=== PATIENT | male | born 1960 | race Caucasian/White ===

== ENCOUNTER → 2019-04-30 | Day surgery (SDC) | payer OTHER ==
[~2019-04-30] MED LIST: Dextrose 5%-Lactated Ringers 1,000 ML IV SCH; Metoprolol Succinate 50 MG Tab.ER PO ONE; Midazolam 1 MG/ML 2 ML SDV ONE; Propofol 200 MG/20 ML SDV ONE; fentaNYL 100 MCG/2 ML SDV ONE
[2019-04-30 09:45] VITALS: BP 123/77; PULSE 76
--- NOTE | 2019-05-07 09:36 | OR ---
DATE OF PROCEDURE: 04/30/2019 SURGEON: Kyler Bill MD PREOPERATIVE DIAGNOSES: 1. Dysphagia with history of previous esophageal strictures. 2. History of colon polyps. POSTOPERATIVE DIAGNOSES: 1. Upper endoscopy showing: a. Mild narrowing of esophagogastric junction with minimal inflammation of esophagogastric junction. b. Mild antral gastritis and duodenitis. 2. History of colon polyps with colonoscopy showing: a. Single polyp involving splenic flexure. b. Uncomplicated left colonic diverticulosis. OPERATIVE PROCEDURE: 1. Esophagogastroduodenoscopy with: a. Biopsies of antrum for CLOtest (69433). b. Dilation of esophagus (73097). 2. Flexible colonoscopy with polypectomy by snare technique (55251). ANESTHESIA: IV sedation. INDICATION FOR PROCEDURE: The patient presents with some recurrent dysphagia referable to the distal esophagus. He has known history of some reflux esophagitis and presently is on omeprazole 20 mg a day. With this, he has fairly good control of reflux symptoms, but has developed some dysphagia. Several years ago, he has had a dilation of the esophagus with adequate relief of those symptoms for a period of years. The plan in this regard is proceed with upper GI endoscopy with biopsies and/or dilation as indicated. The patient also has a history of colon polyps and is undergoing followup screening colonoscopy with biopsies and/or polypectomy as indicated. Potential risks of the procedures including bleeding and perforation were discussed, and the patient wishes to proceed. DETAILS OF PROCEDURE: The patient was taken to the operating room and placed in a left lateral decubitus position, after which the upper GI endoscope was passed orally through the length of the esophagus, into the stomach with retroflexion view of the fundus, and thereafter through the pyloric channel and into the junction of the third and fourth portions of the duodenum. Findings included normal hypopharynx, larynx, upper esophageal sphincter, and esophageal body. At the EG junction, a small hiatal hernia was present. There was some mild narrowing in the esophagogastric junction, but otherwise minimal gross inflammation of the EG junction. There is no upward extension of the esophagogastric mucosal line above the mucosal folds, i.e. no evidence of Ayala's esophagus. Within the antrum, there was some patchy redness and this continued into the duodenal bulb, but without ulcers or erosions, and beyond the duodenal bulb, the findings were normal. At this point, biopsies were obtained from the antrum and sent for CLOtest for H. pylori. Following this, a guidewire was passed into the stomach and the gastroscope withdrawn. A 51- [place] Savary dilator was then passed over the guidewire and held in position for 1 minute, after which the guidewire and dilator were removed. Attention was then taken to the colonoscopy. Initial digital rectal exam was unremarkable. The colonoscope was then passed into the rectum with retroflexion revealing uncomplicated hemorrhoidal columns. The scope was eventually passed to the level of the cecum. The prep was fairly good with a small amount of liquid stool obscuring a small percentage of the mucosal surfaces. The patient was noted to have some uncomplicated left colonic diverticulosis. Otherwise, he had a single polyp measuring around 5 mm in the splenic flexure. This was removed by means of the cautery snare technique. Good hemostasis was evident, and the polyp was retrieved and sent for histologic evaluation. The scope was then withdrawn and the procedure then concluded. The recommendation, assuming the current polyp was benign, would be to repeat colonoscopy in 3 years, and repeat upper endoscopy can be done on a p.r.n. basis based on the dysphagia. Otherwise, we will have him continue the omeprazole 20 mg a day. Kyler Bill MD /[id number]
== END ==
LOC: JP.SDS 05:51
PROVIDERS: ATTEND Surgery
DX: D12.3 Benign neoplasm of transverse colon (principal); K57.30 Diverticulosis of large intestine without perforation or abscess without bleeding; K29.70 Gastritis, unspecified, without bleeding; K29.80 Duodenitis without bleeding; K21.0 Gastro-esophageal reflux disease with esophagitis; K44.9 Diaphragmatic hernia without obstruction or gangrene; K91.89 Other postprocedural complications and disorders of digestive system; F17.210 Nicotine dependence, cigarettes, uncomplicated; Z86.010 Personal history of colon polyps; Z91.048 Other nonmedicinal substance allergy status
CPT/HCPCS: 43239; 43248; 45385; 87081; 88305; A9270; J2250; J2704; J3010; J7121

== ENCOUNTER 2020-01-28 05:15 | Day surgery (SDC) | payer OTHER ==
[2020-01-28] MEDS ORDERED: Bupivacaine 0.5% 30 ML SDV ONE (06:35)
[2020-01-28] MEDS ORDERED: Povidone-Iodine 10% Soln 118.25 ML Bottle ONE (06:35)
[2020-01-28] MEDS: Nozin Nasal Sanitizer NASBOTH SCH ×3 (06:55→20:00)
[2020-01-28] MEDS ORDERED: Lactated Ringers 1,000 ML IV SCH (07:00)
[2020-01-28] MEDS ORDERED: fentaNYL 100 MCG/2 ML SDV ONE (07:22)
[2020-01-28] MEDS ORDERED: Midazolam 1 MG/ML 2 ML SDV ONE ×2 (07:22→08:15)
[2020-01-28] MEDS ORDERED: Propofol 200 MG/20 ML SDV ONE ×2 (07:22→08:58)
[2020-01-28] MEDS ORDERED: ceFAZolin 2 GM in Premix Bag 1 BAG IV ONE (07:30)
[2020-01-28] MEDS ORDERED: Lactated Ringers 1,000 ML ONE (09:18)
[2020-01-28] MEDS ORDERED: Acetaminophen 325 MG Tab PO PRN (09:28)
[2020-01-28] MEDS ORDERED: traMADol 50 MG Tab PO PRN (09:28)
[2020-01-28] MEDS ORDERED: Ondansetron 4 MG/2 ML SDV IVPUSH PRN (09:28)
[2020-01-28] MEDS ORDERED: Nitroglycerin 0.4 MG Tab.SL SL PRN (09:45)
[2020-01-28] MEDS: Acetaminophen/oxyCODONE 325-5 MG Tab PO PRN ×3 (12:11→19:55)
[2020-01-28] MEDS: Ketorolac 30 MG/ML SDV IVPUSH PRN ×2 (12:12→19:56)
[2020-01-28] MEDS: HYDROmorphone 0.5 MG/0.5 ML Syringe IVPUSH PRN ×3 (12:13→16:08)
--- NOTE | 2020-01-28 14:05 | CR ---
Knee 1V or 2V Rt CLINICAL HISTORY: Postop FINDINGS: Patient is status post medial hemiarthroplasty. Components appear well seated. There is some intra-articular and 16 is air Impression: Status post Medial hemiarthroplasty
[2020-01-28] MEDS: Sodium Chloride 0.9% 1,000 ML IV SCH (15:33)
[2020-01-28] MEDS: ceFAZolin 1 GM in Premix Bag 1 BAG IV SCH (15:34)
[2020-01-28] MEDS: Pantoprazole 40 MG Tab.CR PO SCH (16:11)
[2020-01-28] MEDS ORDERED: HYDROmorphone 1 MG/ML Syringe IVPUSH PRN (17:07)
[2020-01-28] MEDS: metFORMIN 500 MG Tab PO SCH (17:21)
[2020-01-28] MEDS: Metoprolol Succinate 50 MG Tab.ER PO SCH (20:03)
[2020-01-28] MEDS ORDERED: Melatonin 3 MG Tab PO PRN (20:27)
[2020-01-28] MEDS ORDERED: amLODIPine 5 MG Tab PO SCH (21:00)
[2020-01-28] MEDS ORDERED: Nozin Nasal Sanitizer NASBOTH SCH (21:00)
[2020-01-28] MEDS ORDERED: Terazosin 5 MG Cap PO SCH (21:00)
[2020-01-28] MEDS: Docusate Sodium 100 MG Cap PO SCH (21:45)
[2020-01-29] MEDS: ceFAZolin 1 GM in Premix Bag 1 BAG IV SCH (00:13)
[2020-01-29] MEDS: Sodium Chloride 0.9% 1,000 ML IV SCH (00:13)
[2020-01-29] MEDS: Acetaminophen/oxyCODONE 325-5 MG Tab PO PRN ×3 (02:44→12:12)
[2020-01-29] MEDS: Ketorolac 30 MG/ML SDV IVPUSH PRN (04:40)
[2020-01-29] MEDS: metFORMIN 500 MG Tab PO SCH (07:16)
[2020-01-29] MEDS: Pantoprazole 40 MG Tab.CR PO SCH (07:16)
[2020-01-29] MEDS ORDERED: Aspirin 81 MG Tab.EC PO SCH (09:00)
[2020-01-29] MEDS ORDERED: Cetirizine 10 MG Tab PO SCH (09:00)
[2020-01-29] MEDS ORDERED: Fluticasone Propionate Nasal Spray 16 GM Bottle NASBOTH SCH (09:00)
[2020-01-29] MEDS ORDERED: Rosuvastatin 10 MG Tab PO SCH (09:00)
[2020-01-29] MEDS: Metoprolol Succinate 50 MG Tab.ER PO SCH (09:30)
[2020-01-29] MEDS: Nozin Nasal Sanitizer NASBOTH SCH (09:31)
[2020-01-29] MEDS: Docusate Sodium 100 MG Cap PO SCH (09:31)
[2020-01-29 11:26] VITALS: BP 120/68; PULSE 57
--- NOTE | 2020-01-29 12:19 | PCM.DCSUM1 ---
Discharge Summary - Hospital Course HPI Initial Comments: 59 year old male admitted for right unicompartmental arthroplasty Diagnosis: Stroke: No Modified Joe Scale: No Symptoms at All Modified Alden Scale Score: 0 - Discharge Data Discharge Date: 01/29/20 Discharge Disposition: Home, Self-Care 01 Condition: Good - Referral to Home Health Date of Face to Face Encounter: 01/29/20 Primary Care Physician: Whitney Handy MD - Discharge Diagnosis/Problem(s) (1) Status post right partial knee replacement SNOMED Code(s): 586565414, [id number], [id number], [id number] ICD Code: Z96.651 - PRESENCE OF RIGHT ARTIFICIAL KNEE JOINT Status: Acute Current Visit: Yes - Patient Summary/Data Operative Procedure(s) Performed: Right knee medial unicompartmental arthroplasty Complications: none Consults: Consultations 01/28/20 09:28 Consult to Case Management/Lever Miller [CONS] Routine Comment: Physician Instructions: Service(s) to be Consulted: Case Management Reason for Consult: Plan for Discharge OT Evaluation and Treatment [CONS] Routine Please Evaluate and Treat. OT Reason for Consult: ADL's This query below is only for informational purposes and is not editable. PT Evaluation and Treatment [CONS] Routine Please Evaluate and Treat. PT Reason for Consult: Post op Ortho Surgery This query below is only for informational purposes and is not editable. PT Evaluation and Treatment [CONS] Routine Please Evaluate and Treat. PT Reason for Consult: Post op Ortho Surgery Knee Pending Discharge: Yes, 1- 2 days Special Instructions: Schedule first outpatient PT appointment in 3-5 day post discharge. This query below is only for informational purposes and is not editable. Hospital Course: Admitted for right knee arthroplasty and tolerated surgery without complication. Some difficulty with pain control initially. Better with po meds POD #1 and has been up in siegel and ambulating over 200 feet. Dressing changed and incision looks good, moderate swelling. Home today follow up in 2 weeks. Left knee has been stiff and bothering him more lately and he requested a cortisone injection prior to discharge. - Patient Instructions Diet: Usual Diet as Tolerated Activity: Apply Ice, As Tolerated, Full Weight Bearing Driving: Do Not Drive Showering/Bathing: May Shower Wound/Incision Care: Keep Operative Site/Wound Site Clean and Dry Notify Provider of: Fever, Increased Pain, Swelling and Redness, Drainage, Nausea and/or Vomiting - Discharge Plan *PRESCRIPTION DRUG MONITORING PROGRAM REVIEWED*: No *COPY OF PRESCRIPTION DRUG MONITORING REPORT IN PATIENT JIM: No Prescriptions/Med Rec: oxyCODONE HCl/Acetaminophen [Percocet 5-325 mg Tablet] 1 - 2 each PO Q6HR PRN #48 tablet PRN Reason: Pain Home Medications: Home Meds Aspirin 81 mg PO DAILY 12/27/13 [History] Cetirizine HCl [Allergy Relief] 10 mg PO DAILY 12/27/13 [History] Flunisolide [Nasalide Nasal [place]] 1 spray ISIDRA BID 12/27/13 [History] Metoprolol Succinate 50 mg PO BID 12/27/13 [History] [place]-3/DHA/Epa/Fish Oil [Fish Oil] 1,000 mg PO BID 12/27/13 [History] Omeprazole 20 mg PO BID 12/27/13 [History] Vitamin E 1,000 unit PO DAILY 12/27/13 [History] oxyCODONE 20 mg PO Q6H 12/27/13 [History] Cyanocobalamin (Vitamin B-12) [Vitamin B-12] 1,000 mcg SL DAILY 04/27/19 [History] Rosuvastatin [Crestor] 40 mg PO DAILY 04/27/19 [History] Terazosin [Hytrin] 10 mg PO BEDTIME 04/27/19 [History] metFORMIN [Glucophage] 1,000 mg PO BIDMEALS 04/27/19 [History] Nitroglycerin 0.4 mg SL ASDIRECTED 04/30/19 [History] amLODIPine [Norvasc] 2.5 mg PO BEDTIME 04/30/19 [History] oxyCODONE HCl/Acetaminophen [Percocet 5-325 mg Tablet] 1 - 2 each PO Q6HR PRN #48 tablet 01/29/20 [Rx] Oxygen Therapy Mode: Room Air Referrals: Jayy Vega PT [Physical Therapist] - 01/31/20 8:30 am (Please arrive 15 minutes early to register for your Physical Therapy appointment. Your appointment is at [facility], [address] [place] [address] ) Tony Thompson MD [Physician] - 02/12/20 10:30 am (Pleease arrive 15 minutes early to register for your appointment.) - Discharge Summary/Plan Comment DC Time >30 min.: No - General Info Functional Status: Reports: Pain Controlled, Tolerating Diet, Ambulating, Urinating - Review of Systems General: Reports: No Symptoms HEENT: Reports: No Symptoms Pulmonary: Reports: No Symptoms Cardiovascular: Reports: No Symptoms Gastrointestinal: Reports: No Symptoms Genitourinary: Reports: No Symptoms Musculoskeletal: Reports: Joint Pain, Joint Swelling Skin: Reports: No Symptoms Neurological: Reports: No Symptoms Psychiatric: Reports: No Symptoms - Patient Data Vitals - Most Recent: Last Vital Signs Temp 36.9 C 01/29/20 11:26 Pulse 57 L 01/29/20 11:26 Resp 18 01/29/20 11:26 BP 120/68 01/29/20 11:26 Pulse Ox 94 L 01/29/20 11:26 Weight - Most Recent: 79.379 kg I&O - Last 24 hours: Intake & Output 01/28/20 01/29/20 01/29/20 22:59 06:59 14:59 Intake Total 1475 801 Output Total 250 Balance 1225 801 Med Orders - Current: Current Medications Acetaminophen (Tylenol) 650 mg PO Q4H PRN PRN Reason: Pain/Fever Amlodipine Besylate (Norvasc) 2.5 mg PO BEDTIME [facility] Last Admin: 01/28/20 20:03 Dose: 2.5 mg Documented by: Aspirin (Halfprin) 81 mg PO DAILY [facility] Last Admin: 01/29/20 09:31 Dose: 81 mg Documented by: Bandage/Support Products ( Nasal Irrigation Installation Specialist) 1 applic NASBOTH BID [facility] Stop: 02/03/20 21:01 Last Admin: 01/29/20 09:31 Dose: 1 applic Documented by: Cetirizine HCl (Zyrtec) 10 mg PO DAILY [facility] Last Admin: 01/29/20 09:30 Dose: 10 mg Documented by: Docusate Sodium (Colace) 100 mg PO BID [facility] Last Admin: 01/29/20 09:31 Dose: 100 mg Documented by: Fluticasone Propionate (Flonase) 0 gm NASBOTH DAILY [facility] Last Admin: 01/29/20 09:31 Dose: 1 applic Documented by: Hydromorphone HCl (Dilaudid) 1 mg IVPUSH Q1H PRN PRN Reason: Breakthrough Pain Last Admin: 01/28/20 21:50 Dose: 1 mg Documented by: Sodium Chloride (Normal Saline) 1,000 mls @ 125 mls/hr IV ASDIRECTED [facility] Last Admin: 01/29/20 00:13 Dose: 125 mls/hr Documented by: Ketorolac Tromethamine (Toradol) 30 mg IVPUSH Q8H PRN PRN Reason: Pain Last Admin: 01/29/20 04:40 Dose: 30 mg Documented by: Melatonin (Melatonin) 9 mg PO BEDTIME PRN PRN Reason: Insomnia Last Admin: 01/28/20 21:51 Dose: 9 mg Documented by: Metformin HCl (Glucophage) 1,000 mg PO BIDMEALS [facility] Last Admin: 01/29/20 07:16 Dose: 1,000 mg Documented by: Metoprolol Succinate (Toprol Xl) 50 mg PO BID [facility] Last Admin: 01/29/20 09:30 Dose: 50 mg Documented by: Nitroglycerin (Nitrostat) 0.4 mg SL ASDIRECTED PRN PRN Reason: CHEST PAIN Ondansetron HCl (Zofran) 4 mg IVPUSH Q6H PRN PRN Reason: Nausea/Vomiting Oxycodone/Acetaminophen (Percocet 325-5 Mg) 2 tab PO Q4H PRN PRN Reason: Pain (moderate 4-6) Last Admin: 01/29/20 12:12 Dose: 2 tab Documented by: Pantoprazole Sodium (Protonix) 40 mg PO BIDAC [facility] Last Admin: 01/29/20 07:16 Dose: 40 mg Documented by: Rosuvastatin Calcium (Crestor) 40 mg PO DAILY [facility] Last Admin: 01/29/20 09:30 Dose: 40 mg Documented by: Terazosin HCl (Hytrin) 10 mg PO BEDTIME [facility] Last Admin: 01/28/20 20:02 Dose: 10 mg Documented by: Tramadol HCl (Ultram) 50 mg PO Q4H PRN PRN Reason: Pain (mild 1-3) Discontinued Medications Bupivacaine HCl (Marcaine 0.5%) Confirm Administered Dose 30 ml .ROUTE .STK-MED ONE Stop: 01/28/20 06:36 Fentanyl (Sublimaze) Confirm Administered Dose 100 mcg .ROUTE .STK-MED ONE Stop: 01/28/20 07:23 Hydromorphone HCl (Dilaudid) 0.5 mg IVPUSH Q1H PRN PRN Reason: Breakthrough Pain Last Admin: 01/28/20 16:08 Dose: 0.5 mg Documented by: Lactated Ringer's (Ringers, Lactated) 1,000 mls @ 75 mls/hr IV ASDIRECTED [facility] Last Admin: 01/28/20 06:51 Dose: 75 mls/hr Documented by: Cefazolin Sodium 2 gm/ (Dextrose/Water) 100 mls @ 200 mls/hr IV ONETIME ONE Stop: 01/28/20 07:59 Last Admin: 01/28/20 07:58 Dose: 200 mls/hr Documented by: Lactated Ringer's (Ringers, Lactated) Confirm Administered Dose 1,000 mls @ as directed .ROUTE .STK-MED ONE Stop: 01/28/20 09:19 Cefazolin Sodium/Dextrose 1 gm (/ Premix) 50 mls @ 100 mls/hr IV Q8H [facility] Stop: 01/29/20 00:29 Last Admin: 01/29/20 00:13 Dose: 100 mls/hr Documented by: Midazolam HCl (Versed 1 Mg/Ml) Confirm Administered Dose 2 mg .ROUTE .STK-MED ONE Stop: 01/28/20 07:23 Midazolam HCl (Versed 1 Mg/Ml) Confirm Administered Dose 2 mg .ROUTE .STK-MED ONE Stop: 01/28/20 08:16 Povidone Iodine (Betadine 10% Soln) Confirm Administered Dose 1 ml .ROUTE .STK- MED ONE Stop: 01/28/20 06:36 Last Admin: 01/28/20 08:42 Dose: 15 ml Documented by: Propofol (Diprivan 20 Ml) Confirm Administered Dose 200 mg .ROUTE .STK-MED ONE Stop: 01/28/20 07:23 Propofol (Diprivan 20 Ml) Confirm Administered Dose 200 mg .ROUTE .STK-MED ONE Stop: 01/28/20 08:59 - Exam General: Reports: Alert, Oriented HEENT: Reports: Pupils Equal, Pupils Reactive, EOMI Lungs: Reports: Normal Respiratory Effort Cardiovascular: Reports: Regular Rate, Regular Rhythm GI/Abdominal Exam: Normal Bowel Sounds, Soft, Non-Tender, No Distention (Male) Exam: Deferred Rectal (Males) Exam: Deferred Back Exam: Reports: Normal Inspection Extremities: Joint Swelling, Limited Range of Motion Skin: Reports: Warm, Dry Wound/Incisions: Reports: Healing Well, No Drainage Neurological: Reports: No New Focal Deficit Psy/Mental Status: Reports: Alert, Normal Affect, Normal Mood
[2020-01-29] MEDS ORDERED: Betamethasone Acetate/Betamethasone Sod Phosphate 30 MG/5 ML MDV IARTIC ONE (12:30)
[2020-01-29] MEDS ORDERED: Bupivacaine 0.5% 10 ML SDV INJECT ONE (12:30)
--- NOTE | 2020-02-04 16:31 | OR ---
DATE OF PROCEDURE: 01/28/2020 SURGEON: Tony Thompson MD PREOPERATIVE DIAGNOSIS: Osteoarthritis, right knee, medial compartment. POSTOPERATIVE DIAGNOSIS: Osteoarthritis, right knee, medial compartment. PROCEDURE: Right medial unicompartmental arthroplasty using [employer] ZUK components with size D femur, 3 tibia, and 8 mm insert. REGIONAL CONSTRUCTION MANAGER: ABHISHEK Lauren ANESTHESIA: Spinal with sedation. INDICATIONS: Mr. Marquez is a 59-year-old gentleman with history of progressive pain in his right knee for the past year. He has had intermittent injections with temporary relief and now presents for right medial unicompartmental arthroplasty. X-rays reveal medial joint space collapse with well-preserved patellofemoral joint and lateral compartment. Risks, benefits, and potential complications were discussed. DESCRIPTION OF PROCEDURE: After adequate anesthesia was obtained, the patient was placed supine with a tourniquet about the right upper thigh. Right leg was prepped and draped in a sterile fashion. Leg was exsanguinated, and tourniquet inflated to 300 mmHg pressure. A longitudinal incision was made just slightly medial of midline from the superior pole of the patella to just below the joint line. This was carried down to the subcutaneous tissues. Medial parapatellar arthrotomy was performed. This was taken up just to the insertion of the VMO. Anterior horn of the medial meniscus was excised along with a portion of the fat pad for visualization. The patellofemoral joint was inspected with some minor chondromalacia. Decision was made to proceed with the unicompartmental arthroplasty. With the knee flexed, the anterior lip of the tibial plateau was removed with an oscillating saw. The leg was extended, and extramedullary alignment jig was placed. This was aligned and secured to both the femur and the tibia. Distal femoral cut was then made. This portion of the cutting jig was removed. The knee was flexed, and the proximal tibia was resected. A portion of the tibia was removed, and the medial meniscus was excised. The femur was then sized to a D component. The D cutting jig was secured. Remaining femoral cuts and peg hole drills were placed. The tibia was sized to a 3 component. A 3 tibial baseplate was tapped into position and secured with a small pin, and peg holes were drilled. Knee was then trialed with an 8 mm insert. This provided 2 mm of gap in both flexion and extension with full extension and good range of motion. Trials were removed. The knee was thoroughly irrigated with pulse lavage. Bone surfaces were dried. Components were cemented in place. Excess cement was removed. The knee was held in full extension with the trial insert and a 2 mm gap spacer. The trial was then removed, and the final polyethylene was snapped into position. Knee was taken through range of motion. Again, full extension could be obtained, flexion easily beyond 120 degrees, and had very good balance in both flexion and extension. Knee was irrigated once again. This was followed by a dilute Betadine irrigation and a final saline irrigation. Medial arthrotomy was closed with #2 Ethibond in a running fashion. Skin was closed with 2-0 Vicryl and a running 3-0 Monocryl. Steri-Strips were applied. Light compressive dressing was placed. The patient tolerated the procedure very well. There were no complications. He was taken from the operating room in a stable condition. Tony Thompson MD /[id number]
== END 2020-01-29 13:30 | disposition home or self-care (01) ==
LOC: JP.SDS 05:15 → JP.MS 09:28 → JP.SDS 01-29 13:30
PROVIDERS: ATTEND Specialist
DX: M17.11 Unilateral primary osteoarthritis, right knee (principal); I25.10 Atherosclerotic heart disease of native coronary artery without angina pectoris; I25.2 Old myocardial infarction; E78.49 Other hyperlipidemia; F17.210 Nicotine dependence, cigarettes, uncomplicated; Z79.82 Long term (current) use of aspirin; Z79.899 Other long term (current) drug therapy; Z88.5 Allergy status to narcotic agent; Z88.8 Allergy status to other drugs, medicaments and biological substances; Z98.890 Other specified postprocedural states
CPT/HCPCS: 27446; 73560; 97110; 97116; 97161; 97165; 97530; A9270; C1713; C1776; J0690; J0702; J1170; J1885; J2250; J2704; J3010; J3490; J7030; J7060; J7120

== ENCOUNTER 2021-05-01 06:41 | Day surgery (SDC) | payer OTHER ==
[2021-05-01] MEDS ORDERED: Propofol 200 MG/20 ML SDV ONE (07:04)
[2021-05-01] MEDS ORDERED: Midazolam 1 MG/ML 2 ML SDV ONE (07:04)
[2021-05-01] MEDS ORDERED: fentaNYL 100 MCG/2 ML SDV ONE (07:04)
[2021-05-01] MEDS ORDERED: Dextrose 5%-Lactated Ringers 1,000 ML IV SCH (07:30)
[2021-05-01 09:31] VITALS: BP 108/61; PULSE 76
== END 2021-05-01 09:45 | disposition home or self-care (01) ==
LOC: JP.SDS 06:41
PROVIDERS: ATTEND Surgery
DX: Z09 Encounter for follow-up examination after completed treatment for conditions other than malignant neoplasm (principal); K57.30 Diverticulosis of large intestine without perforation or abscess without bleeding; Z98.890 Other specified postprocedural states; F17.200 Nicotine dependence, unspecified, uncomplicated; Z85.038 Personal history of other malignant neoplasm of large intestine
CPT/HCPCS: J2250; J2704; J3010; J7121

== ENCOUNTER 2022-07-14 09:13 | Emergency (ER) | payer OTHER ==
[2022-07-14] MEDS ORDERED: Ketorolac 30 MG/ML SDV IVPUSH ONE (09:57)
[2022-07-14] MEDS ORDERED: Ondansetron 4 MG/2 ML SDV IVPUSH ONE (09:58)
[2022-07-14] MEDS ORDERED: Terazosin 1 MG Cap PO ONE (09:59)
[2022-07-14] MEDS ORDERED: Sodium Chloride 0.9% 1,000 ML IV SCH (10:00)
[2022-07-14 10:12] LABS: HEMOGLOBIN 15.3 g/dL (12.9-16.9); MEAN CORPUSCULAR HEMOGLOBIN 33.9 pg (31.6-35.5); MEAN CORPUSCULAR HGB CONC 35.6 g/dL (31.6-35.5); MEAN CORPUSCULAR VOLUME 95.3 fL (81.4-99.0); RED BLOOD CELL COUNT 4.51 M/uL (4.14-5.76); WHITE BLOOD CELL COUNT,WBC 8.3 K/uL (3.2-11.0)
[2022-07-14 10:13] LABS: BICARBONATE,VENOUS 23.8 mmol/L; CARBOXYHEMOGLOBIN 5.9 % (0.0-1.6); O2 SATURATION VENOUS 90.6; OXYHEMOGLOBIN 84.3 %; PCO2 VENOUS 34.3 mm/Hg; PH,VENOUS 7.456 (7.350-7.450); PO2 VENOUS 55.8 mm/Hg; TOTAL HEMOGLOBIN 15.7 g/dL (13.5-18.0)
[2022-07-14] MEDS ORDERED: Terazosin 5 MG Cap PO ONE (10:15)
[2022-07-14 10:33] LABS: PROTHROMBIN TIME 9.9 sec (9.2-10.6)
[2022-07-14 10:43] LABS: A/G RATIO 0.9 (1.2-2.2); ALANINE AMINOTRANSFERASE,ALT 24 U/L (12-78); ALBUMIN 3.5 g/dL (3.4-5.0); ALKALINE PHOSPHATASE 80 U/L (46-116); ASPARTATE AMNIOTRANSFERASE,AST 17 U/L (15-37); BILIRUBIN TOTAL 0.6 mg/dL (0.2-1.0); BLOOD UREA NITROGEN,BUN 14 mg/dL (7-18); CALCIUM 8.4 mg/dL (8.5-10.1); CARBON DIOXIDE,CO2 25 mmol/L (21-32); CHLORIDE,CL 101 mmol/L (100-108); CREATININE 1.1 mg/dL (0.8-1.3); ESTIMATED GFR 76 mL/min (>60); GLUCOSE RANDOM 130 mg/dL (74-106); POTASSIUM,K 4.2 mmol/L (3.6-5.2); PROTEIN TOTAL,TP 7.6 g/dL (6.4-8.2); SODIUM,NA 135 mmol/L (140-148)
[2022-07-14 10:46] LABS: ANION GAP 13.2 mmol/L (5.0-14.0)
[2022-07-14 11:58] LABS: APPEARANCE,URINE CLEAR (CLEAR); BILIRUBIN,URINE NEGATIVE (NEGATIVE); COLOR,URINE YELLOW (YELLOW); GLUCOSE,URINE 500 mg/dL (NEGATIVE); KETONES,URINE NEGATIVE (NEGATIVE); LEUKOCYTE ESTERASE,URINE NEGATIVE (NEGATIVE); NITRITE,URINE NEGATIVE (NEGATIVE); OCCULT BLOOD,URINE NEGATIVE (NEGATIVE); PH,URINE 6.5 (5.0-8.0); PROTEIN,URINE NEGATIVE (NEGATIVE); UROBILINOGEN,URINE 0.2 EU/dL (0.2-1.0)
[2022-07-14 12:16] LABS: AMORPHOUS SEDIMENT,URINE RARE; BACTERIA,URINE NOT SEEN; EPITHELIAL CELLS,URINE NOT SEEN; MUCUS,URINE NOT SEEN; RBC,URINE NOT SEEN (0-5); WBC,URINE 0-5 (0-5)
[2022-07-14 12:16] LABS: AMPHETAMINES SCREEN, URINE NEGATIVE (NEGATIVE); BARBITURATE SCREEN,URINE NEGATIVE (NEGATIVE); BENZODIAZEPINES SCREEN,URINE NEGATIVE (NEGATIVE); METHADONE SCREEN, URINE NEGATIVE (NEGATIVE); METHAMPHETAMINES SCREEN, URINE NEGATIVE (NEGATIVE); OXYCODONE SCREEN,URINE NEGATIVE (NEGATIVE); PROPOXYPHENE SCREEN,URINE NEGATIVE (NEGATIVE); THC SCREEN,URINE 50 NG/ML PRESUMPTIVE POSITIVE (NEGATIVE)
[2022-07-14 12:23] VITALS: PULSE 60
[2022-07-14 12:38] VITALS: BP 115/58
== END 2022-07-14 12:40 | disposition home or self-care (01) ==
LOC: JP.ED 09:13
DX: G44.209 Tension-type headache, unspecified, not intractable (principal); N40.0 Benign prostatic hyperplasia without lower urinary tract symptoms; I10 Essential (primary) hypertension; E78.00 Pure hypercholesterolemia, unspecified; K21.9 Gastro-esophageal reflux disease without esophagitis; E11.9 Type 2 diabetes mellitus without complications; Z79.82 Long term (current) use of aspirin; Z79.899 Other long term (current) drug therapy; Z88.8 Allergy status to other drugs, medicaments and biological substances; Z88.5 Allergy status to narcotic agent; Z91.048 Other nonmedicinal substance allergy status
CPT/HCPCS: 36415; 71045; 80053; 80305; 80307; 81001; 82803; 83605; 84484; 85027; 85379; 85610; 93005; 96361; 96374; 96375; 99284; A9270; J1885; J2405; J7030

== ENCOUNTER 2023-01-12 10:26 | Emergency (ER) | payer OTHER ==
[2023-01-12 10:37] VITALS: BP 93/50; PULSE 76
[2023-01-12 11:13] LABS: BASOPHILS PERCENT AUTO 0.5 % (0.1-1.3); EOSINOPHILS ABSOLUTE AUTO 0.06 K/uL (0.00-0.40); EOSINOPHILS PERCENT AUTO 1.5 % (0.0-5.4); HEMATOCRIT 46.6 % (38.4-49.7); HEMOGLOBIN 16.4 g/dL (12.9-16.9); IMMATURE GRAN PERCENT AUTO 0.3 % (0.0-0.7); LYMPHOCYTES ABSOLUTE AUTO 1.05 K/uL (0.8-3.3); LYMPHOCYTES PERCENT AUTO 26.8 % (11.4-47.7); MEAN CORPUSCULAR HEMOGLOBIN 32.8 pg (31.6-35.5); MEAN CORPUSCULAR HGB CONC 35.2 g/dL (31.6-35.5); MEAN CORPUSCULAR VOLUME 93.2 fL (81.4-99.0); MONOCYTES ABSOLUTE AUTO 0.77 K/uL (0.20-0.90); MONOCYTES PERCENT AUTO 19.6 % (3.3-12.6); NEUTROPHILS ABSOLUTE AUTO 2.01 K/uL (1.0-7.6); NEUTROPHILS PERCENT AUTO 51.3 % (40.0-78.1); PLATELET COUNT,PLT 131 K/uL (130-375); WHITE BLOOD CELL COUNT,WBC 3.9 K/uL (3.2-11.0)
[2023-01-12 11:15] LABS: BASOPHILS ABSOLUTE AUTO 0.02 K/uL (0.00-0.10); IMMATURE GRAN ABSOLUTE AUTO 0.01 K/uL (0.00-0.23)
[2023-01-12 11:37] LABS: CALCIUM 7.9 mg/dL (8.5-10.1); CREATININE 1.1 mg/dL (0.8-1.3); EST CRCL DRUG DOSING (CG) 64.26 mL/min; POTASSIUM,K 4.3 mmol/L (3.6-5.2); TROPONIN I HIGH SENSITIVITY 9.3 pg/mL (<=60.3)
[2023-01-12 11:38] LABS: ANION GAP 13.3 mmol/L (5.0-14.0)
[2023-01-12 11:50] LABS: INFLUENZA A NAA NEGATIVE (NEGATIVE); INFLUENZA B NAA NEGATIVE (NEGATIVE); RESPIRATORY SYNCYTIAL VIR NAA NEGATIVE (NEGATIVE)
[2023-01-12 12:08] LABS: CORONAVIRUS COVID-19 NAA POSITIVE (NEGATIVE)
== END 2023-01-12 12:28 | disposition home or self-care (01) ==
LOC: JP.ED 10:26
DX: U07.1 COVID-19 (principal); I10 Essential (primary) hypertension; E11.9 Type 2 diabetes mellitus without complications; K21.9 Gastro-esophageal reflux disease without esophagitis; I25.2 Old myocardial infarction; Z79.01 Long term (current) use of anticoagulants; Z79.82 Long term (current) use of aspirin; Z88.8 Allergy status to other drugs, medicaments and biological substances; Z88.5 Allergy status to narcotic agent; Z91.09 Other allergy status, other than to drugs and biological substances; Z79.899 Other long term (current) drug therapy
CPT/HCPCS: 0241U; 36415; 70450; 71046; 80048; 83735; 84484; 85025; 93005; 99285

== ENCOUNTER 2023-06-20 16:07 | Emergency (ER) | payer OTHER ==
[2023-06-20 19:04] VITALS: BP 126/74; PULSE 69
[2023-06-20] MEDS: Sodium Chloride 0.9% 1,000 ML IV SCH (20:08)
[2023-06-20 20:09] LABS: BASOPHILS PERCENT AUTO 0.3 % (0.1-1.3); EOSINOPHILS ABSOLUTE AUTO 0.22 K/uL (0.00-0.40); EOSINOPHILS PERCENT AUTO 3.7 % (0.0-5.4); HEMATOCRIT 40.4 % (38.4-49.7); HEMOGLOBIN 14.7 g/dL (12.9-16.9); IMMATURE GRAN PERCENT AUTO 0.3 % (0.0-0.7); LYMPHOCYTES PERCENT AUTO 35.1 % (11.4-47.7); MEAN CORPUSCULAR HEMOGLOBIN 33.3 pg (31.6-35.5); MEAN CORPUSCULAR HGB CONC 36.4 g/dL (31.6-35.5); MEAN CORPUSCULAR VOLUME 91.6 fL (81.4-99.0); MONOCYTES ABSOLUTE AUTO 0.68 K/uL (0.20-0.90); MONOCYTES PERCENT AUTO 11.4 % (3.3-12.6); NEUTROPHILS ABSOLUTE AUTO 2.94 K/uL (1.0-7.6); NEUTROPHILS PERCENT AUTO 49.2 % (40.0-78.1); PLATELET COUNT,PLT 247 K/uL (130-375); RED BLOOD CELL COUNT 4.41 M/uL (4.14-5.76)
[2023-06-20 20:10] LABS: BASOPHILS ABSOLUTE AUTO 0.02 K/uL (0.00-0.10); IMMATURE GRAN ABSOLUTE AUTO 0.02 K/uL (0.00-0.23)
[2023-06-20 20:29] LABS: A/G RATIO 0.8 (1.2-2.2); ALANINE AMINOTRANSFERASE,ALT 21 U/L (12-78); ALBUMIN 3.3 g/dL (3.4-5.0); ALKALINE PHOSPHATASE 64 U/L (46-116); ASPARTATE AMNIOTRANSFERASE,AST 14 U/L (15-37); BILIRUBIN TOTAL 0.4 mg/dL (0.2-1.0); BLOOD UREA NITROGEN,BUN 12 mg/dL (7-18); C-REACTIVE PROTEIN 0.81 mg/dL (<0.50); CALCIUM 8.8 mg/dL (8.5-10.1); CARBON DIOXIDE,CO2 24 mmol/L (21-32); CHLORIDE,CL 103 mmol/L (100-108); EST CRCL DRUG DOSING (CG) 70.69 mL/min; ESTIMATED GFR 85 mL/min (>60); GLUCOSE RANDOM 106 mg/dL (74-106); POTASSIUM,K 3.4 mmol/L (3.6-5.2); PROTEIN TOTAL,TP 7.3 g/dL (6.4-8.2); SODIUM,NA 137 mmol/L (140-148)
[2023-06-20 20:30] LABS: ANION GAP 13.4 mmol/L (5.0-14.0)
== END 2023-06-20 21:38 | disposition home or self-care (01) ==
LOC: JP.ED 16:07
DX: K52.9 Noninfective gastroenteritis and colitis, unspecified (principal); I10 Essential (primary) hypertension; E11.9 Type 2 diabetes mellitus without complications; K21.9 Gastro-esophageal reflux disease without esophagitis; Z95.1 Presence of aortocoronary bypass graft; Z88.8 Allergy status to other drugs, medicaments and biological substances; Z88.5 Allergy status to narcotic agent; Z88.1 Allergy status to other antibiotic agents; Z79.82 Long term (current) use of aspirin; Z79.899 Other long term (current) drug therapy
CPT/HCPCS: 36415; 80053; 83690; 85025; 86140; 96360; 99284; J7030

== ENCOUNTER 2023-11-09 23:17 | Day surgery (SDC) | payer OTHER ==
[2023-11-09] MEDS: Sodium Chloride 0.9% 1,000 ML IV SCH (23:50)
[2023-11-09] MEDS: HYDROmorphone 0.5 MG/0.5 ML Syringe IVPUSH ONE (23:51)
[2023-11-10 00:01] LABS: ANION GAP 12.4 mmol/L (5.0-14.0); CREATININE 1.4 mg/dL (0.8-1.3); EST CRCL DRUG DOSING (CG) 49.84 mL/min; POTASSIUM,K 3.8 mmol/L (3.6-5.2)
[2023-11-10] MEDS ORDERED: Propofol 200 MG/20 ML SDV ONE (00:01)
[2023-11-10] MEDS ORDERED: fentaNYL 50 MCG/ML SDV ONE (00:01)
[2023-11-10] MEDS ORDERED: Midazolam 1 MG/ML 2 ML SDV ONE (00:01)
[2023-11-10 00:10] LABS: BASOPHILS ABSOLUTE AUTO 0.05 K/uL (0.00-0.10); BASOPHILS PERCENT AUTO 0.7 % (0.1-1.3); EOSINOPHILS ABSOLUTE AUTO 0.34 K/uL (0.00-0.40); EOSINOPHILS PERCENT AUTO 4.9 % (0.0-5.4); HEMATOCRIT 44.1 % (38.4-49.7); HEMOGLOBIN 16.2 g/dL (12.9-16.9); IMMATURE GRAN ABSOLUTE AUTO 0.06 K/uL (0.00-0.23); IMMATURE GRAN PERCENT AUTO 0.9 % (0.0-0.7); LYMPHOCYTES ABSOLUTE AUTO 2.17 K/uL (0.8-3.3); LYMPHOCYTES PERCENT AUTO 31.4 % (11.4-47.7); MEAN CORPUSCULAR HEMOGLOBIN 33.6 pg (31.6-35.5); MEAN CORPUSCULAR HGB CONC 36.7 g/dL (31.6-35.5); MEAN CORPUSCULAR VOLUME 91.5 fL (81.4-99.0); MONOCYTES ABSOLUTE AUTO 0.71 K/uL (0.20-0.90); MONOCYTES PERCENT AUTO 10.3 % (3.3-12.6); NEUTROPHILS ABSOLUTE AUTO 3.59 K/uL (1.0-7.6); NEUTROPHILS PERCENT AUTO 51.8 % (40.0-78.1); PLATELET COUNT,PLT 207 K/uL (130-375); RED BLOOD CELL COUNT 4.82 M/uL (4.14-5.76); WHITE BLOOD CELL COUNT,WBC 6.9 K/uL (3.2-11.0)
[2023-11-10 01:41] VITALS: BP 107/56; PULSE 60
== END 2023-11-10 02:05 | disposition home or self-care (01) ==
LOC: JP.ED 23:17 → JP.SDS 11-10 00:25 → JP.ED 11-10 02:05 → JP.SDS 11-10 02:05
PROVIDERS: ATTEND Surgery
DX: T18.128A Food in esophagus causing other injury, initial encounter (principal); I10 Essential (primary) hypertension; K21.9 Gastro-esophageal reflux disease without esophagitis; E11.9 Type 2 diabetes mellitus without complications; F17.210 Nicotine dependence, cigarettes, uncomplicated; Z95.1 Presence of aortocoronary bypass graft; Z79.82 Long term (current) use of aspirin; Z79.51 Long term (current) use of inhaled steroids; Z79.899 Other long term (current) drug therapy; Z88.8 Allergy status to other drugs, medicaments and biological substances; Z91.09 Other allergy status, other than to drugs and biological substances; Z88.5 Allergy status to narcotic agent; W44.F3XA Food entering into or through a natural orifice, initial encounter
CPT/HCPCS: 36415; 80048; 85025; 96361; 96374; 99283; J2250; J2704; J3010; J7030

== ENCOUNTER 2023-11-22 19:02 | Emergency (ER) | payer OTHER ==
[2023-11-22 19:39] VITALS: BP 117/50; PULSE 71
== END 2023-11-22 20:35 | disposition home or self-care (01) ==
LOC: JP.ED 19:02
DX: T18.128A Food in esophagus causing other injury, initial encounter (principal); I10 Essential (primary) hypertension; K21.9 Gastro-esophageal reflux disease without esophagitis; E11.9 Type 2 diabetes mellitus without complications; F17.210 Nicotine dependence, cigarettes, uncomplicated; Z79.82 Long term (current) use of aspirin; Z79.899 Other long term (current) drug therapy; Z88.8 Allergy status to other drugs, medicaments and biological substances; Z88.5 Allergy status to narcotic agent; Z88.9 Allergy status to unspecified drugs, medicaments and biological substances; Z91.09 Other allergy status, other than to drugs and biological substances
CPT/HCPCS: 99283; 99284

== ENCOUNTER 2023-11-23 10:16 | Day surgery (SDC) | payer OTHER ==
[2023-11-23] MEDS ORDERED: Propofol 200 MG/20 ML SDV ONE ×2 (11:27→11:57)
[2023-11-23] MEDS ORDERED: fentaNYL 50 MCG/ML SDV ONE ×2 (11:28→11:58)
[2023-11-23] MEDS ORDERED: Midazolam 1 MG/ML 2 ML SDV ONE (11:58)
[2023-11-23] MEDS: Sodium Chloride 0.9% 1,000 ML IV SCH (12:03)
[2023-11-23 14:08] VITALS: PULSE 60
[2023-11-23 14:09] VITALS: BP 116/50
== END 2023-11-23 14:15 | disposition home or self-care (01) ==
LOC: JP.SDS 10:16
PROVIDERS: ATTEND Surgery
DX: R13.10 Dysphagia, unspecified (principal); K20.90 Esophagitis, unspecified without bleeding; I10 Essential (primary) hypertension; E11.9 Type 2 diabetes mellitus without complications
CPT/HCPCS: 43239; 43249; 88305; C1726; J2250; J2704; J3010; J7030; 00731-QZ

== ENCOUNTER 2024-11-02 06:21 | Day surgery (SDC) | payer OTHER ==
[2024-11-02] MEDS ORDERED: Propofol 200 MG/20 ML SDV ONE ×2 (07:02→08:01)
[2024-11-02] MEDS ORDERED: fentaNYL 50 MCG/ML SDV ONE (07:03)
[2024-11-02] MEDS ORDERED: Midazolam 1 MG/ML 2 ML SDV ONE (07:03)
[2024-11-02] MEDS: Lactated Ringers 1,000 ML IV SCH (07:20)
[2024-11-02 09:21] VITALS: BP 106/53; PULSE 63
== END 2024-11-02 09:30 | disposition home or self-care (01) ==
LOC: JP.SDS 06:21
PROVIDERS: ATTEND Family Medicine
DX: D12.3 Benign neoplasm of transverse colon (principal); K29.50 Unspecified chronic gastritis without bleeding; K57.30 Diverticulosis of large intestine without perforation or abscess without bleeding; K22.89 Other specified disease of esophagus; K92.1 Melena; E11.9 Type 2 diabetes mellitus without complications; Z88.8 Allergy status to other drugs, medicaments and biological substances; Z88.5 Allergy status to narcotic agent; Z79.82 Long term (current) use of aspirin; Z79.899 Other long term (current) drug therapy
CPT/HCPCS: 00813; 43239; 45380; J2250; J2704; J3010; J7120